=== PATIENT | male | born 1960 | race Caucasian/White ===

== ENCOUNTER 2022-04-16 16:53 | Emergency (ER) | payer BC, OTHER ==
[~2022-04-16] VITALS: Ht 188 cm; Wt 95.0 kg
[~2022-04-16 16:53] MED LIST: NO HOME MEDS
[2022-04-16 16:57] VITALS: BP 142/88
[2022-04-16] MEDS ORDERED: LIDOcaine 1% 30ml preserv. free vial IJ ONE (17:40)
[2022-04-16] MEDS ORDERED: TETanus/Pertussis (Acell)/Diphther VAC/PF (Tdap-Adult) 0.5ml syringe IMVAC ONE (17:50)
[2022-04-16] MEDS ORDERED: cephalexin 250mg capsule PO ONE (17:50)
[2022-04-16] MEDS ORDERED: CEPH500C2 PO (17:51)
== END 2022-04-16 18:50 | disposition home or self-care (01) ==
LOC: ER 16:53
DX: S01.511A Laceration without foreign body of lip, initial encounter (principal); K21.9 Gastro-esophageal reflux disease without esophagitis; V00.848A Other accident with standing micro-mobility pedestrian conveyance, initial encounter; Y93.89 Activity, other specified; Y92.89 Other specified places as the place of occurrence of the external cause; Y99.8 Other external cause status
CPT/HCPCS: 12011; 90471; 90715; 99284; A6449